=== PATIENT | female | born 1970 | race Caucasian/White ===

== ENCOUNTER 2022-12-18 10:14 | Emergency (ER) | payer OTHER ==
[2022-12-18] MEDS ORDERED: HYDROcodone/Acetaminophen 5/325 mg Tablet ONE (13:14)
[2022-12-18] MEDS ORDERED: Lidocaine 4% Patch TD SCH (14:00)
== END 2022-12-18 13:25 | disposition home or self-care (01) ==
LOC: CSHERS 10:14
DX: T63.301A Toxic effect of unspecified spider venom, accidental (unintentional), initial encounter (principal)
CPT/HCPCS: 99282

== ENCOUNTER 2023-08-19 09:19 | Outpatient (CLI) | payer OTHER | END 2023-08-19 09:20 | disposition home or self-care (01) | LOC: CSHMAMMO 09:19 | PROVIDERS: ATTEND Obstetrics & Gynecology | DX: E28.319 Asymptomatic premature menopause (principal) | CPT/HCPCS: 77080 ==